=== PATIENT | female | born 1990 | race Caucasian/White ===

== ENCOUNTER 2025-04-11 09:21 | Emergency (ER) | payer BC, SELFPAY ==
--- NOTE | ~2025-04-11 | CT_ITS ---
EXAMINATION: CT ABDOMEN AND PELVIS WITHOUT CONTRAST CLINICAL INFORMATION: Right flank pain. COMPARISON: None available. TECHNIQUE: Multidetector volumetric imaging was performed from the superior aspect of the liver through the pubic symphysis. Sagittal and coronal reformatted images were obtained on the technologist's workstation. This CT examination was performed using dose optimization techniques as appropriate, variously including the following: *Automated exposure control *Adjustment of mA and/or kV according to patient size (this includes techniques or standardized protocols for targeted exams where dose is matched to indication/reason for exam; i.e. extremities or head) *Use of iterative reconstruction technique. DLP: 344 mGy-cm FINDINGS: Inadequate evaluation of the intra-abdominal solid organs and vascular structures due to lack of IV contrast. LUNG BASES: No acute airspace disease or discrete pulmonary nodules. LIVER, GALLBLADDER, AND BILIARY TREE: Liver measures 19 cm. Subtle nodular surface.. Status post cholecystectomy. No intrahepatic or extrahepatic biliary ductal dilatation. PANCREAS: No peripancreatic fluid collections. SPLEEN: 9 cm. ADRENAL GLANDS: No nodular lesions. KIDNEYS AND URETERS: Right kidney: There is a 2 mm obstructing calculus at the distal right ureter near the vesicoureteral junction. There is moderate dilatation of the right pelvicalyceal system and the proximal right ureter. Left kidney: Multiple punctate 1 mm calculi. No hydronephrosis. No dilatation of the ureter. BLADDER: Fluid-filled. GASTROINTESTINAL TRACT: Abundant stool. No intestinal obstruction pattern. Terminal ileum is normal. Appendix is normal. No pneumatosis intestinalis. No pneumoperitoneum. No ascites. ABDOMINAL WALL: Small fat-containing umbilical hernia. LYMPH NODES: No gross retroperitoneal lymphadenopathy. VASCULAR: No aneurysm, abdominal aorta. No gross calcified plaque. PELVIC VISCERA: Radiopaque ring at the region of the cervix/pelvic floor likely status post pessary procedure. OSSEOUS STRUCTURES: No acute fracture or listhesis. S-shaped curvature of the thoracolumbar spine. Spondylosis at L5-S1. CT/CT abdomen pelvis wo IV con IMPRESSION: 2 mm obstructing calculus distal right ureter resulting in moderate hydronephrosis. Nephrolithiasis, bilaterally. Hepatomegaly. Fleischner guidelines were followed. Electronically signed by: Farhat Hernandez MD 04/11/2025 12:51 PM EST
[2025-04-11 09:30] VITALS: BP 153/95; PULSE 106; RESP 20; TEMP 36.5; O2SAT 100; BMI 24.3
[2025-04-11 10:01] LABS: MANUAL DIFF FLAG NO
[2025-04-11 10:04] LABS: Hematocrit 38.1 % (37.0-47.0); Hemoglobin 12.9 g/dl (12.0-16.0); Imm Gran Abs Auto 0.03 X10*3/uL (0.00-0.03); Imm Gran Pct Auto 0.3 % (0.0-0.4); Lymphocytes Absolute Auto 2.4 X10*3/uL (1.2-4.9); Mean Corpuscular HGB Conc 33.9 g/dl (31.0-35.0); Mean Corpuscular Hemoglobin 30.4 pg (27.0-33.0); Mean Corpuscular Volume 89.9 fL (80.0-98.0); NRBC Abs Auto 0.000 X10*3/uL (0.0-0.012); NRBC Pct Auto 0.0 /100WBC (0.0-0.2); Platelet Count 323 X10*3/uL (160-400); Red Blood Count 4.24 X10*6/uL (4.20-5.50); White Blood Count 9.5 X10*3/uL (4.8-10.8)
[2025-04-11 10:08] LABS: Appearance Urine Clear; Glucose Urine UA Negative (Negative); PH 6.0 (5.0-9.0); Specific Gravity - Urine 1.025 (1.005-1.025); UMIC TRIGGER UACC YES
[2025-04-11 10:09] LABS: UPreg QC Valid YES
[2025-04-11 10:17] LABS: Alanine Aminotransferase 18 U/L (0-31); Albumin Level 4.8 g/dL (3.5-5.0); Alkaline Phosphatase 54 U/L (39-117); Anion Gap 12 (12-20); Aspartate Amino Transferase 21 U/L (5-31); Blood Urea Nitrogen 7 mg/dL (9-16); Calcium 9.1 mg/dL (8.4-10.2); Carbon Dioxide 25 mmol/L (22-29); Chloride 109 mmol/L (96-108); Creatinine Clr Calc Pharmacy 98.3; Estimated Glomerular Filt Rate > 60; Lipase 23 U/L (8-78); Potassium 3.5 mmol/L (3.3-5.1); Sodium 142 mmol/L (135-145); Total Protein 7.2 g/dL (6.5-8.0)
[2025-04-11 11:15] VITALS: BP 138/84; PULSE 73; TEMP 36.6; O2SAT 100
--- NOTE | 2025-04-11 11:54 | ED.GENADULT ---
HPI - General Adult General Chief complaint: Abdominal Pain Stated complaint: kidney pain Time Seen by Provider: 04/11/25 11:15 Source: patient and family (Family member at bedside corroborating history) Mode of arrival: ambulatory Limitations: no limitations History of Present Illness ED Provider: ALAINA Silverman HPI narrative: 35-year-old female with medical history of kidney stones presents to ED due to R flank pain, nausea that began this morning. Patient states R flank pain and nausea woke from from sleep this morning that progressively worsened as the morning went on. Additionally, patient reports increased urinary frequency with small volume of urine, but no pain with urination. Patient states this pain feels different from prior episodes of nephrolithiasis as she ususally has abdominal/groin pain. Patient denies fevers, chills, vomiting, headaches, visual changes, dizziness, lightheadedness. MD complaint: R flank pain, nausea Related Data Previous Rx's ?Medication ?Instructions ?Recorded morphine 15 mg immediate release 15 mg PO Q8H PRN pain #9 tabs 04/11/25 tablet ondansetron HCl 4 mg tablet 4 mg PO Q8H PRN nausea and 04/11/25 vomiting #9 tabs prednisone 20 mg tablet 20 mg PO DAILY #7 tabs 04/11/25 tamsulosin 0.4 mg capsule 0.4 mg PO DAILY 14 days #14 caps 04/11/25 Allergies Allergy/AdvReac Type Severity Reaction Status Date / Time No Known Allergies Allergy Verified 04/11/25 09:33 Review of Systems Review of Systems: Yes all other systems are reviewed and are negative PMFSH Social History Social History Smoked in Last 30 Days: No Use of substances other than those prescribed or required for medical reasons: No Advance Directives: No Advance Directives Information Provided: Yes Do you have a plan to hurt others: No Plan Patient : No Physical Exam ED Vital Signs: Vital Signs - 24 hr 04/11/25 09:30 04/11/25 11:15 04/11/25 12:16 Temperature 97.7 F 97.8 F Pulse Rate 106 H 73 96 Respiratory Rate 20 18 Blood Pressure 153/95 H 138/84 Pulse Oximetry 100 100 100 Oxygen Delivery Method Room Air Room Air Room Air 04/11/25 14:10 Temperature Pulse Rate 107 H Respiratory Rate 16 Blood Pressure 121/85 Pulse Oximetry 100 Oxygen Delivery Method Room Air BMI result Body Mass Index 24.3 GENERAL APPEARANCE: ?AxOx4, generally well-appearing, no acute distress. HEENT: ?NC, AT. MMM. EOMI, clear conjunctiva, oropharynx clear. NECK: ?Supple without lymphadenopathy.? No stiffness or restricted ROM. HEART:? Normal rate and regular rhythm, normal S1/S1, no m/r/g LUNGS:? CTAB, moving air well. No crackles or wheezes are heard. ABDOMEN: ?Soft, nontender, nondistended BACK: CVAT of R flank, no midline spinal tenderness, no bony step offs palpated. EXTREMITIES: ?Without cyanosis, clubbing or edema. NEUROLOGICAL: ?Grossly nonfocal. Alert and oriented, moving all 4 extremities. Observed to ambulate with normal gait. Skin: ?Warm and dry without any rash. Medications Administered Discontinued Medications Generic Name Dose Route Start Last Admin Trade Name Freq PRN Reason Stop Dose Admin Lactated Ringer's 1,000 mls @ 999 mls/hr 04/11/25 12:05 04/11/25 14:08 Lr IV 04/11/25 13:05 Infused .Q1H1M ONE Infusion Ketorolac Tromethamine 30 mg 04/11/25 10:40 04/11/25 10:49 Ketorolac Tromethamine 30 Mg/Ml Vial IM 04/11/25 10:41 30 mg ONCE ONE Administration Morphine Sulfate 4 mg 04/11/25 11:54 04/11/25 12:12 Morphine Sulfate 4 Mg/Ml Cartridge IVPUSH 04/11/25 11:55 4 mg ONCE ONE Administration Protocol Morphine Sulfate 4 mg 04/11/25 13:55 04/11/25 14:09 Morphine Sulfate 4 Mg/Ml Cartridge IVPUSH 04/11/25 13:56 4 mg ONCE ONE Administration Protocol Medical Decision Making Medical Decision Making MDM Narrative: 35-year-old female with medical history of kidney stones presents to ED due to R flank pain, nausea that began this morning. Patient states R flank pain and nausea woke from from sleep this morning that progressively worsened as the morning went on. Additionally, patient reports increased urinary frequency with small volume of urine, but no pain with urination. VS on initial observation-BP 138/84, pulse rate of 73, respiratory rate of 20, afebrile with oral temp of 97.8?, O2 saturation 100% on room air. On physical exam patient is nontoxic appearing, lungs clear to auscultation bilaterally, cardiac exam reveals normal rate and rhythm without murmurs/rubs/gallops, abdomen is soft, nondistended, without rigidity, nontender, significant CVAT of the right flank without overlying skin changes Plan: Labs, UA were ordered from Triage. Will add on CT abdomen pelvis for further evaluation. Patient medicated with 30mg IM toradol from triage - Patient with persistent pain, medicated with 1L IV fluids, 4mg IV morphine for pain management Labs without leukocytosis/leukopenia, no left shift, no evidence of anemia with H&H stable, no electrolyte abnormality, LFTs WNL, lipase WNL, beta hCG negative. Patient with elevated chloride of 109, and decreased BUN of 7 most likely due to dehydration. UA negative for leukocyte esterase, urine nitrites, 3-5 urine RBCs, 0-2 squamous epithelial cells, trace urine bacteria CT abdomen and pelvis reveals a nonobstructing 2 mm stone of the right ureter near the UVJ with hydronephrosis and hydroureter. Patient with persistent pain, and is recieving additional dose of 4mg IV morphine for pain control. Patient is being discharged with 7 day course of 20mg prednisone, 14 day course of 0.4mg tamsulosin and 3 days 15mg po morphine for breakthrough pain control. I counseled patient to use 500 mg of Tylenol 400 mg of ibuprofen every 6 hours to manage pain with morphine strictly for breakthrough pain that isn't controlled by OTC analgesia. I have placed referral for Urology for patient to follow up with. I counseled patient she should also follow up with her primary care doctor to ensure resolution of her pain as she awaits to see Urology. Patient is well enough to go home for self-care today. Patient is in agreement with the plan. Differential Diagnosis Differential Diagnoses: The differential diagnosis associated with the presentation includes Pyelonephritis Nephrolithiasis UTI Admission/Observation Consideration of admission/observation: Escalation of care including admission/observation considered Lab Data [facility] Lab Attestation statement: I reviewed the patient's lab results. 04/11/25 09:56 04/11/25 09:56 Labs: Lab Results 04/11/25 Range/Units 09:56 WBC 9.5 (4.8-10.8) X10*3/uL RBC 4.24 (4.20-5.50) X10*6/uL Hgb 12.9 (12.0-16.0) g/dl Hct 38.1 (37.0-47.0) % MCV 89.9 (80.0-98.0) fL MCH 30.4 (27.0-33.0) pg MCHC 33.9 (31.0-35.0) g/dl RDW 12.6 (11.0-16.0) % Plt Count 323 (160-400) X10*3/uL MPV 9.4 (9.4-12.3) fL Immature Gran % (Auto) 0.3 (0.0-0.4) % Neut % (Auto) 65.5 (45-73) % Lymph % (Auto) 25.3 (20-40) % Turner % (Auto) 7.0 (2-11) % Eos % (Auto) 1.2 (0-4) % Baso % (Auto) 0.7 (0-2) % Lymph # (Auto) 2.4 (1.2-4.9) X10*3/uL Turner # (Auto) 0.7 (0.1-1.2) X10*3/uL Eos # (Auto) 0.1 (0.0-0.4) X10*3/uL Baso # (Auto) 0.1 (0.0-0.2) X10*3/uL Abs Immat Gran (auto) 0.03 (0.00-0.03) X10*3/uL Absolute Neuts (auto) 6.2 (2.0-8.3) x10*3/uL Absolute Nucleated RBC 0.000 (0.0-0.012) X10*3/uL Nucleated RBC % (auto) 0.0 (0.0-0.2) /100WBC Sodium 142 (135-145) mmol/L Potassium 3.5 (3.3-5.1) mmol/L Chloride 109 H (96-108) mmol/L Carbon Dioxide 25 (22-29) mmol/L Anion Gap 12 (12-20) BUN 7 L (9-16) mg/dL Creatinine 0.67 (0.5-1.4) mg/dL Estim Creat Clear Calc 98.3 Estimated GFR > 60 Random Glucose 92 (60-115) mg/dL Calcium 9.1 (8.4-10.2) mg/dL Total Bilirubin 0.5 (0.0-1.0) mg/dL Direct Bilirubin 0.2 (0.0-0.5) mg/dL AST 21 (5-31) U/L ALT 18 (0-31) U/L Alkaline Phosphatase 54 (39-117) U/L Total Protein 7.2 (6.5-8.0) g/dL Albumin 4.8 (3.5-5.0) g/dL Lipase 23 (8-78) U/L Beta HCG, Quant < 2 mIU/mL Urine Color Yellow Urine Appearance Clear Urine pH 6.0 (5.0-9.0) Ur Specific [place] 1.025 (1.005-1.025) Urine Protein Negative (Neg-Trace) mg/dL Urine Glucose (UA) Negative (Negative) mg/dL Urine Ketones 40 (Negative) mg/dL Urine Blood Trace (Negative) Urine Nitrite Negative (Negative) Ur Leukocyte Esterase Negative (Negative) Urine RBC 3-5 H (0-2) /HPF Urine WBC 0-5 (0-5) /HPF Ur Squamous Epith Cells 0-2 (0-2) /HPF Urine Bacteria Trace (None Seen) Hyaline Casts 0-2 (0-2) /LPF Urine Test NEGATIVE (NEGATIVE) Independent Interpretation I performed an independent interpretation of an: CT Scan Interpretation: CT abdomen and pelvis reveals obstructive nephrolithiasis of the right side, I agree with the radiologist's interpretation Radiology Impression Discussion of test interpretation with radiology: I have reviewed the radiologist's reading. Radiologist Impression: CT abdomen and pelvis Right kidney: There is a 2 mm obstructing calculus at the distal right ureter near the vesicoureteral junction. There is moderate dilatation of the right pelvicalyceal system and the proximal right ureter. Left kidney: Multiple punctate 1 mm calculi. No hydronephrosis. No dilatation of the ureter. BLADDER: Fluid-filled. GASTROINTESTINAL TRACT: Abundant stool. No intestinal obstruction pattern. Terminal ileum is normal. Appendix is normal. No pneumatosis intestinalis. No pneumoperitoneum. No ascites. ABDOMINAL WALL: Small fat-containing umbilical hernia. LYMPH NODES: No gross retroperitoneal lymphadenopathy. VASCULAR: No aneurysm, abdominal aorta. No gross calcified plaque. PELVIC VISCERA: Radiopaque ring at the region of the cervix/pelvic floor likely status post pessary procedure. OSSEOUS STRUCTURES: No acute fracture or listhesis. S-shaped curvature of the thoracolumbar spine. Spondylosis at L5-S1. CT/CT abdomen pelvis wo IV con IMPRESSION: 2 mm obstructing calculus distal right ureter resulting in moderate hydronephrosis. Nephrolithiasis, bilaterally. Hepatomegaly. Fleischner guidelines were followed. Electronically signed by: Farhat Hernandez MD 04/11/2025 12:51 PM [facility] Dictated By: Farhat Amin MD Signed By: <Electronically signed by Farhat Lind MD in OV> 04/11/25 1251 Independent Historian Clinical information obtained from an independent historian. History obtained from or confirmed by: Other (Family member at bedside corroborating history) External Record Review External record reviewed: Inpatient record, Office record and Outpatient record Prescription Management I considered prescription management with: Antibiotic I considered antibiotics however UA without evidence of bacteria most likely contaminated catch, patient afebrile without leukocytosis, no indication for antibiotics at this time. Chronic Conditions Patient?s care impacted by: Other (Kidney stones) Discharge Plan Discharge Clinical Impression: Right kidney stone, Hydronephrosis Patient Disposition: Home, Self-Care Additional Instructions: You were evaluated in the emergency department due to right flank pain. Your lab work was reassuring as there was no significant elevation or decrease in your white blood cell count indicative of systemic infection, no evidence of anemia, no electrolyte abnormalities. Your urine revealed a small amount of red blood cells, without evidence of infection. Your urine will be cultured to see if a specific bacteria grows, if so we will call you and start you on the correct antibiotics. You are being prescribed a 5 day course of 20 mg prednisone that you will take once a day for inflammation, and a 2 week course of tamsulosin which is a smooth muscle relaxer to help relax the muscles of ureters to allow you to pass the stone more easily. For pain, you are being prescribed 9 tablets of 15mg oral morphine that you can take for breakthrough pain when Tylenol and ibuprofen are not managing pain. Additionally, you are being prescribed a 5 day course of Zofran for nausea and vomiting due to pain. I have placed referral to Urology for you to follow up with. [facility] will be contacting you within 2 business?days after being discharged from the Emergency?Department.? During this?phone call, they will inform you when your follow up appointment will be scheduled. If you have not received a call from [facility] after 2 business?days, please call the?office at [phone]. Please return to the emergency department if you experience fevers over 100.4? that are not managed by Tylenol/Motrin, inability to urinate, increased abdominal pain, or any new/worsening/concerning symptoms. Prescriptions: New tamsulosin 0.4 mg capsule 0.4 mg PO DAILY 14 Days Qty: 14 0RF ondansetron HCl 4 mg tablet 4 mg PO Q8H PRN (Reason: nausea and vomiting) Qty: 9 0RF prednisone 20 mg tablet 20 mg PO DAILY Qty: 7 0RF morphine 15 mg tablet 15 mg PO Q8H PRN (Reason: pain) Qty: 9 0RF Rx Instructions: Partial Fill upon patient request. Referrals: [facility] [place] Urology Services [Provider Group, Urology] Print Language: Czech
[2025-04-11] MEDS: Lactated Ringers 1,000 ML 999 ML IV (12:13)
[2025-04-11 12:16] VITALS: PULSE 96; RESP 18; O2SAT 100
--- OUTSIDE RECORDS SUMMARY | 2025-04-11 13:40 | XMS_ITS | Patient Health Record ---
Author Organization [facility] Address [address] [place] [address] Care Team Providers Care Intranet Developer Name Role Phone Shaun Santiago Primary Care Provider Jeanine Bullard Unavailable [phone] Noé Black Unavailable Unavailable Allergies No Known Allergies Reason For Referral No Information Medications Medication SIG (Take, Route, Frequency, Duration) Notes Start Date End Date Status NuvaRing Active Vyvanse Active Immunizations Vaccine Route Administration Date Status Comme nts Influenza Unknown 11/12/2021 Refused Pneumococcal Unknown 11/12/2021 Refused Social History Tobacco Use: Social History Observation Description Date Details (start date - stop date) Former Smoker NA - NA Social History General Social Info Question Answer Notes Alcohol Did you have a drink containing alcohol i n the past year? Yes How often did you have six or more drinks on one occasion in the past year? Never (0 points) how many drink did you have on a typical day when you were drinking in the past year? 1 or 2 (0 points) How often did you have a drink containing alcohol in the past year? Monthly or less (1 point) Points 1 Interpretation Negative Smoking Status: former smoker Additional Details Category Social Info Options Details General Recreational drug use No Exercise No Sunscreen use Yes Utilized a tanning bed Yes Body Piercings/Tattoos No No Problems Problem Type SNOMED Code ICD Code Onset Dates Problem Status W/U Status Risk Notes Problem Inflamed seborrheic keratosis (001502333) Inflamed seborrheic keratosis (L82.0) Active confirmed Problem Lentigo (276056566) Lentigo (L81.4) Active confirmed Problem Seborrheic keratosis (94160564) Seborrheic keratosis (L82.1) Active confirmed Problem Cellulitis of finger (78539429) Paronychia of finger, unspecified laterality (L03.019) Active confirmed Plan Of Treatment No Information Insurance Providers Payer Name Payer Address Payer Phone Subscriber Number Group Number Insured Name Patient Relationship to Insured Coverage Start Date Coverage End Date do not use [facility] Insurance referral and authorization [facility] [address] [place] [address] [id number] Shalom Mendoza Spouse - patient is the spouse of the insured Medical (General) History Surgical History Surgery Date(Month/Year) Gallbladder Surgery 01/2015 Fat Transfer 06/30 Mastoplexy 05/31
--- OUTSIDE RECORDS SUMMARY | 2025-04-11 13:40 | XMS_ITS | Clinical Summary ---
Author Organization [facility] Address [address] [place] [address] Care Team Providers Care Mosaic Worker Name Role Phone Ref, Hasnopcp Primary Care Provider Unavailabl e Allergies No known active allergies Medications No known medications Social History Tobacco Use Types Packs/Day Years Used Date Smoking Tobacco: Never Assessed Comments Unknown Sex and Gender Information Value Date Recorded Sex Assigned at Female 10/03/2024 12:05 PM EDT Legal Sex Female 10:35 AM EDT Gender Identity Not on file Sexual Orientation Not on file Last Filed Vital Signs Vital Sign Reading Time Taken Comments Blood Pressure 145/98 10/03/2024 2:00 PM EDT Pulse 77 10/03/2024 2:00 PM EDT Temperature 36.9 C (98.4 F) 10/03/2024 2:00 PM EDT Respiratory Rate 16 10/03/2024 2:00 PM EDT Oxygen Saturation 100% 10/03/2024 2:00 PM EDT Inhaled Oxygen Concentration - - Weight - - Height - - Body Mass Index - - Plan of Treatment Health Maintenance Due Date Last Done Comments Cervical Cancer Screening 1988 HIV Screening 1988 HPV and Pap Smear 1988 Hepatitis C Screening 1988 Pap Smear 1988 Varicella Vaccines (1 of 2 - 13+ 2-dose series) 2001 Hepatitis B Vaccines (1 of 3 - 19+ 3-dose series) 2007 Alcohol/Substance Use Screening 05/10/2024 Depression Screening and Follow-Up 05/10/2024 Social Drivers of Health Annual Screening 05/10/2024 Influenza Vaccine (#1) 2024 9, 02/28/2018, 03/26/2017, Additional history exists COVID-19 Vaccine (1 - 2024-26 season) 2025 DTaP,Tdap,and Td Vaccines (2 - Td or Tdap) 08/01/2028 08/01/2018 Pneumococcal Vaccine: Pediatric (0-5 Years) and At-Risk Patients (6-50 Years) Aged Out No longer eligible based on patient's age to complete this topic Insurance [facility] HMO/POS Care Teams Mosaic Worker Relationship Specialty Start Date End Date Ref, Hasnopcp DO NOT EDIT THIS RECORD VIA PROVIDER ON THE FLY PCP - General Retail Custodial Associate 10/03/24
--- OUTSIDE RECORDS SUMMARY | 2025-04-11 13:40 | XMS_ITS | Clinical Summary ---
Author Organization [facility] Address [address] [place] [id number] Phone Care Team Providers Care Carton Liner Name Role Phone Lydia Ramosfer Vero BOATENG Primary Care Provider + Medications traMADoL (ULTRAM) 50 mg tabletIndicatio ns:Closed displaced fracture of fourth metatarsal bone of right foot, initial encounter,Close d displaced fracture of fifth metatarsal bone of right foot, initial encounter Take 1-2 tablets by mouth every 4-6 hours as needed for pain, maximum 400 mg/day. Patient may request partial refill. 30 tablet 01/18/2023 Active Active Problems No known active problems Social History Tobacco Use Types Packs/Day Years Used Date Smoking Tobacco: Never Assessed Education Answer Date Recorded Are you interested in more education? Not on juila e 01/18/2023 Are you concerned about learning? Not on file 01/18/2023 No 01/18/2023 No 01/18/2023 Digital Access Answer Date Recorded No 01/18/2023 No 01/18/2023 Reliable internet access at home? Not on file 01/18/2023 Device with a working camera? Not on file Comments Unknown Sex and Gender Information Value Date Recorded Sex Assigned at Not on file Legal Sex Female 1:30 PM EDT Gender Identity Not on file Sexual Orientation Not on file Plan of Treatment Health Maintenance Due Date Last Done Comments Adult Td,Tdap Booster 1988 DEPRESSION SCREENING 2000 SMOKING Hx and SMOKELESS TOB ACCO SCREENING 2001 HEPATITIS C SCREENING 2006 HIV ONE-TIME SCREENING (18-6 5 YEARS) 2006 PAP SMEAR 2009 INFLUENZA VACCINE (#1) 2024 COVID-19 VACCINE (2024-2 6 season) 2025 HEPATITIS A VACCINES Aged Out No long er eligible based on patient's age to complete this topic HIB VACCINES Aged Out No longer eligi ble based on patient's age to complete this topic MENINGOCOCCAL VACCINES (ACWY) Aged Out No longer eligible based on patient's age to complete this topic MENINGOCOCCAL VACCINES (B) Aged Out N o longer eligible based on patient's age to complete this topic PNEUMOCOCCAL VACCINES (0-49 years) Aged Out No longer eligible based on patient's age to complete this topic Medical Devices Not on file [place] [address] [address] [address] [place] [address] [place] [address] [place] [address] Care Teams Carton Liner Relationship Specialty Start Date End Date Ruchi Ramos NP [address] [place] [id number] PCP - General Nurse Practitioner 06/10/23 Additional Source Comments The information contained in this document represents components of the legal health record. It is not the complete legal health record.[facility]
[2025-04-11 14:10] VITALS: BP 121/85; PULSE 107; RESP 16; O2SAT 100
[2025-04-11 14:26] VITALS: BP 121/85; PULSE 100; RESP 16; TEMP -17.7; TEMP 0; O2SAT 100
== END 2025-04-11 14:28 | disposition home or self-care (01) ==
PROVIDERS: Emergency Provider Emergency Medicine
DX: N20.0 Calculus of kidney (principal); N13.30 Unspecified hydronephrosis; R10.A1 Flank pain, right side; R11.10 Vomiting, unspecified
CPT/HCPCS: 36415; 74176; 80048; 80076; 81001; 81003; 81025; 83690; 84702; 85025; 96361; 96372; 96374; 96375; 96376; 99284; 99285; J1885; J2270; J7120

== ENCOUNTER → 2025-04-11 11:00 | Outpatient (BNV) | payer BC, SELFPAY | PROVIDERS: Emergency Provider Emergency Medicine; Visit Provider Radiology Diagnostic Radiology | DX: N13.2 Hydronephrosis with renal and ureteral calculous obstruction (principal); R16.0 Hepatomegaly, not elsewhere classified | CPT/HCPCS: 74176 ==